=== PATIENT | female | born 1955 | race Caucasian/White ===

== ENCOUNTER 2018-04-02 12:03 | Emergency (ER) | payer OTHER ==
--- NOTE | 2018-04-02 12:55 | RAD REPORT ---
EXAM DESCRIPTION: CT - Head Brain Wo Cont - 04/02/2018 12:45 pm CLINICAL HISTORY: TRAUMA Trauma, head injury COMPARISON: No comparisons TECHNIQUE: All CT scans are performed using dose optimization technique as appropriate and may inclu de automated exposure control or mA/KV adjustment according to patient size. FINDINGS: No intracranial hemorrhage, hydrocephalus or extra-axial fluid collection.No areas of brai n edema or evidence of midline shift. The paranasal sinuses and mastoids are clear. The calvarium is intact. IMPRESSION: No acute intracranial abnormality.
[2018-04-02] MEDS ORDERED: MECLIZINE HCL 12.5 MG TAB ONE (13:20)
--- NOTE | 2018-04-02 13:21 | EDPHYS ---
Physician Documentation [facility] Name: Kelly Chaudhry Age: 62 yrs Sex: Female : 1955 Arrival Date: 04/02/2018 Time: 12:06 Bed 9 Private MD: ED Physician Ariadna Posadas HPI: 04/02 13:50 This 62 yrs old Female presents to ER via Ambulatory with complaints of Head snw Injury Without LOC-Adult. 13:50 The patient or guardian reports injury, a laceration, 2.8 cm(s), clean, tenderness. The snw complaints affect the left frontal area. Onset: The symptoms/episode began/occurred suddenly, just prior to arrival. Severity of symptoms: At their worst the symptoms were mild, moderate. The patient has not experienced similar symptoms in the past. It is unknown whether or not the patient has recently seen a physician. Historical: - Allergies: 12:23 No Known Allergies; ph - PMHx: 12:23 vertigo; Hyperlipidemia; ph - PSHx: 12:23 back sx; Tubal ligation; bunion sx; ph - Immunization history:: Adult Immunizations up to date. - Social history:: Smoking status: Patient/guardian denies using tobacco. - Ebola Screening: : No symptoms or risks identified at this time. ROS: 13:48 Constitutional: Negative for fever, chills, and weight loss, Eyes: Negative for injury, snw pain, redness, and discharge, ENT: Negative for injury, pain, and discharge, Neck: Negative for injury, pain, and swelling, Cardiovascular: Negative for chest pain, palpitations, and edema, Respiratory: Negative for shortness of breath, cough, wheezing, and pleuritic chest pain, Abdomen/GI: Negative for abdominal pain, nausea, vomiting, diarrhea, and constipation, Back: Negative for injury and pain, : Negative for injury, bleeding, discharge, and swelling, MS/Extremity: Negative for injury and deformity, Skin: Negative for injury, rash, and discoloration. 13:48 Neuro: Positive for struck head on furniture as she leaned over to pick something up. no LOC, pt states she has vertigo and she was experiencing some of that prior to stumbling. + laceration to left frontal scalp, bleeding controlled. Exam: 13:45 Constitutional: This is a well developed, well nourished patient who is awake, alert, snw and in no acute distress. Head/Face: Normocephalic, traumatic. 1in lac to left frontal scalp, linear, bleeding controlled Eyes: Pupils equal round and reactive to light, extra-ocular motions intact. Lids and lashes normal. Conjunctiva and sclera are non-icteric and not injected. Cornea within normal limits. Periorbital areas with no swelling, redness, or edema. ENT: Nares patent. No nasal discharge, no septal abnormalities noted. Tympanic membranes are normal and external auditory canals are clear. Oropharynx with no redness, swelling, or masses, exudates, or evidence of obstruction, uvula midline. Mucous membranes moist. Neck: Trachea midline, no thyromegaly or masses palpated, and no cervical lymphadenopathy. Supple, full range of motion without nuchal rigidity, or vertebral point tenderness. No Meningismus. Chest/axilla: Normal chest wall appearance and motion. Nontender with no deformity. No lesions are appreciated. Cardiovascular: Regular rate and rhythm with a normal S1 and S2. No gallops, murmurs, or rubs. Normal PMI, no JVD. No pulse deficits. Respiratory: Lungs have equal breath sounds bilaterally, clear to auscultation and percussion. No rales, rhonchi or wheezes noted. No increased work of breathing, no retractions or nasal flaring. Abdomen/GI: Soft, non-tender, with normal bowel sounds. No distension or tympany. No guarding or rebound. No evidence of tenderness throughout. Back: No spinal tenderness. No costovertebral tenderness. Full range of motion. Skin: Warm, dry with normal turgor. Normal color with no rashes, no lesions, and no evidence of cellulitis. MS/ Extremity: Pulses equal, no cyanosis. Neurovascular intact. Full, normal range of motion. Psych: Awake, alert, with orientation to person, place and time. Behavior, mood, and affect are within normal limits. 13:45 Neuro: Orientation: is normal, Mentation: is normal, Memory: is normal, Cranial nerves: grossly normal, Cerebellar function: is grossly normal, Sensation: is normal, seizure activity, is not displayed by the patient. Vital Signs: 12:22 BP 153 / 91; Pulse 83; Resp 18; Temp 97.8; Pulse Ox 100% on R/A; Weight 70.31 kg; ph Height 5 ft. 7 in. (170.18 cm); 12:22 Body Mass Index 24.28 (70.31 kg, 170.18 cm) ph Abbi Coma Score: 13:47 Eye Response: spontaneous(4). Verbal Response: oriented(5). Motor Response: obeys snw commands(6). Total: 15. 13:50 Eye Response: spontaneous(4). Verbal Response: oriented(5). Motor Response: obeys snw commands(6). Total: 15. Laceration: 13:13 Wound Repair of 2.2cm ( 0.9in ) subcutaneous laceration to left frontal area. Linear snw shaped.. Distal neuro/vascular/tendon intact. Anesthesia: Local anesthetic administered with 0 mls of 1% lidocaine. Wound prep: Simple cleansing with hibiclenz. Skin closed with 2 1-0 Marzena using staple gun. Dressed with Neosporin. Patient tolerated well. MDM: 12:37 Patient medically screened. snw 13:47 Data reviewed: vital signs, nurses notes. Data interpreted: Pulse oximetry: on room air snw is 100 %. Interpretation: normal. Counseling: I had a detailed discussion with the patient and/or guardian regarding: the historical points, exam findings, and any diagnostic results supporting the discharge/admit diagnosis, the presence of at least one elevated blood pressure reading (>120/80) during this emergency department visit, radiology results, the need for outpatient follow up, to return to the emergency department if symptoms worsen or persist or if there are any questions or concerns that arise at home. Special discussion: I have referred the patient to see his PCP for further evaluation of high blood pressure. Based on the patient's history, exam and DX evaluation, there is no indication for emergent intervention or inpatient TX. It is understood by the patient/guardian that if the SXs persist or worsen they need to return immediately for re-evaluation. Based on the history and exam findings, there is no indication for further emergent testing or inpatient evaluation. I discussed with the patient/guardian the need to see the primary care provider for further evaluation of the symptoms. generally takes Claritin D (discussed medications assoc with HTN). 04/02 12:25 Order name: Head Brain Wo Cont CT; Complete Time: 13:02 ph Administered Medications: 13:13 Drug: Meclizine 50 mg Route: PO; Disposition: 04/02/18 13:20 Discharged to Home. Impression: Vertigo, Superficial injury of head, Laceration without foreign body of unspecified part of head. - Condition is Stable. - Discharge Instructions: Head Injury, Adult, Hypertension, Stitches, Marzena, or Adhesive Wound Closure, Vertigo. - Prescriptions for Keflex 500 mg Oral Capsule - take 1 capsule by ORAL route every 8 hours for 10 days; 30 capsule. Meclizine 25 mg Oral Tablet - take 1 tablet by ORAL route every 8 hours As needed; 30 tablet. - Medication Reconciliation Form, Thank You Letter, Antibiotic Education, Prescription Opioid Use form. - Follow up: Emergency Department; When: As needed; Reason: Worsening of condition. Follow up: Private Physician; When: 1 week; Reason: Recheck today's complaints, Continuance of care, Staple/Suture removal, Re-evaluation by your physician. Addendum: 04/04/2018 15:27 Co-signature as Attending Physician, Ariadna Posadas MD. m a2 Signatures: Dispatcher [employer] EDMS Kindra Ricketts, LUCINA-C MUSICAL STRING MAKER-Csnw Saundra James RN RN Irma Garcia RN RN Ariadan Posadas MD MD ak2 Corrections: (The following items were deleted from the chart) 04/02 13:41 13:20 04/02/2018 13:20 Discharged to Home. Impression: Vertigo; Superficial injury of hb head; Laceration without foreign body of unspecified part of head. Condition is Stable. Forms are Medication Reconciliation Form, Thank You Letter, Antibiotic Education, Prescription Opioid Use. Follow up: Emergency Department; When: As needed; Reason: Worsening of condition. Follow up: Private Physician; When: 1 week; Reason: Recheck today's complaints, Continuance of care, Staple/Suture removal, Re-evaluation by your physician. snw
--- NOTE | 2018-04-02 13:21 | ER ---
Nurse's Notes [facility] Name: Kelly Chaudhry Age: 62 yrs Sex: Female : 1955 Arrival Date: 04/02/2018 Time: 12:06 Bed 9 Private MD: Diagnosis: Vertigo;Superficial injury of head;Laceration without foreign body of unspecified part of head Presentation: 04/02 12:20 Presenting complaint: Patient states: " I was bending over to put on my shoes and hit ph my head in the dresser." Denies LOC or blood thinner use, small laceration noted to L side of head, pt reports some dizziness and nausea, states, " I have a hx of vertigo though.". Transition of care: patient was not received from another setting of care. Onset of symptoms was April 02, 2018. Risk Assessment: Do you want to hurt yourself or someone else? Patient reports no desire to harm self or others. Initial Sepsis Screen: Does the patient meet any 2 criteria? No. Patient's initial sepsis screen is negative. Does the patient have a suspected source of infection? No. Patient's initial sepsis screen is negative. Care prior to arrival: None. 12:20 Method Of Arrival: Ambulatory ph 12:20 Acuity: MAXIMILIANO 3 ph Historical: - Allergies: 12:23 No Known Allergies; ph - PMHx: 12:23 vertigo; Hyperlipidemia; ph - PSHx: 12:23 back sx; Tubal ligation; bunion sx; ph - Immunization history:: Adult Immunizations up to date. - Social history:: Smoking status: Patient/guardian denies using tobacco. - Ebola Screening: : No symptoms or risks identified at this time. Screenin:30 Abuse screen: Denies threats or abuse. Denies injuries from another. Nutritional hb screening: No deficits noted. Tuberculosis screening: No symptoms or risk factors identified. Fall Risk None identified. Assessment: 12:30 General: Appears in no apparent distress. Behavior is calm, cooperative. Pain: Pain hb currently is 3 out of 10 on a pain scale. Neuro: Level of Consciousness is awake, alert, obeys commands, Oriented to person, place, time, situation, Reports dizziness. Cardiovascular: Capillary refill < 3 seconds Patient's skin is warm and dry. Respiratory: Airway is patent Respiratory effort is even, unlabored, Respiratory pattern is regular, symmetrical. GI: No signs and/or symptoms were reported involving the gastrointestinal system. : No signs and/or symptoms were reported regarding the genitourinary system. EENT: No signs and/or symptoms were reported regarding the EENT system. Derm: Skin is pink, warm \\T\\ dry. Musculoskeletal: No signs and/or symptoms reported regarding the musculoskeletal system. Injury Description: Laceration sustained to top of head is clean, 0.5 to 2.5 cm long, not bleeding. 13:15 Reassessment: Patient appears in no apparent distress at this time. Patient and/or hb family updated on plan of care and expected duration. Pain level reassessed. Patient is alert, oriented x 3, equal unlabored respirations, skin warm/dry/pink. Vital Signs: 12:22 BP 153 / 91; Pulse 83; Resp 18; Temp 97.8; Pulse Ox 100% on R/A; Weight 70.31 kg; ph Height 5 ft. 7 in. (170.18 cm); 12:22 Body Mass Index 24.28 (70.31 kg, 170.18 cm) ph Abbi Coma Score: 13:47 Eye Response: spontaneous(4). Verbal Response: oriented(5). Motor Response: obeys snw commands(6). Total: 15. 13:50 Eye Response: spontaneous(4). Verbal Response: oriented(5). Motor Response: obeys snw commands(6). Total: 15. ED Course: 12:06 Patient arrived in ED. rg4 12:22 Triage completed. ph 12:23 Arm band placed on. ph 12:32 Kindra Ricketts FNP-C is PHCP. snw 12:37 Ariadna Posadas MD is Attending Physician. snw 12:40 CT completed. Patient moved to CT via wheelchair. sj 12:45 Patient has correct armband on for positive identification. Bed in low position. Call hb light in reach. Side rails up X 1. 12:46 Head Brain Wo Cont CT In Process Unspecified. EDMS 13:15 No provider procedures requiring assistance completed. hb 13:15 Patient did not have IV access during this emergency room visit. hb Administered Medications: 13:13 Drug: Meclizine 50 mg Route: PO; hb Outcome: 13:15 Discharged to home ambulatory. hb 13:15 Condition: stable 13:15 Discharge instructions given to patient, Instructed on discharge instructions, follow up and referral plans. medication usage, Demonstrated understanding of instructions, follow-up care, medications, Prescriptions given X 2. 13:20 Discharge ordered by . karen 13:41 Patient left the ED. Signatures: Dispatcher [employer] EDMS Kindra Ricketts, MELVA POLICEMAN-Stephanie Ulrich Patricia, RN RN Irma Garcia RN RN Kirsty Eason rg4
== END 2018-04-02 13:41 | disposition home or self-care (01) ==
LOC: ER 12:03
PROC: 0JQ00ZZ Repair Scalp Subcutaneous Tissue and Fascia, Open Approach (ICD-10-PCS; principal; 2018-04-02)
DX: S01.81XA Laceration without foreign body of other part of head, initial encounter (principal); S00.90XA Unspecified superficial injury of unspecified part of head, initial encounter; R42 Dizziness and giddiness; X58.XXXA Exposure to other specified factors, initial encounter
CPT/HCPCS: 70450; 99284

== ENCOUNTER 2018-04-10 08:38 | Emergency (ER) | payer OTHER ==
--- NOTE | 2018-04-10 09:23 | EDPHYS ---
Physician Documentation [facility] Name: Kelly Chaudhry Age: 62 yrs Sex: Female : 1955 Arrival Date: 04/10/2018 Time: 08:40 Bed 12 Private MD: ED Physician Lars Rowan HPI: 04/10 09:23 This 62 yrs old Female presents to ER via Ambulatory with complaints of jr8 Staple Removal. 09:23 The patient has kimberly on the scalp. Previous treatment: The patient was initially jr8 treated 10 day(s) ago. Sutures/kimberly progress: The patient has no c/o's. The wound is well-healing with no redness, swelling, discharge, or dehiscence reported. The patient has not experienced similar symptoms in the past. The patient has not recently seen a physician. Historical: - Allergies: 09:02 NKA; iw - PMHx: 09:02 Hyperlipidemia; Vertigo; iw - PSHx: 09:02 back sx; Tubal ligation; bunion sx; iw - Immunization history:: Adult Immunizations up to date. - Social history:: Smoking status: . - Ebola Screening: : Patient negative for fever greater than or equal to 101.5 degrees Fahrenheit, and additional compatible Ebola Virus Disease symptoms Patient denies exposure to infectious person Patient denies travel to an Ebola-affected area in the 21 days before illness onset No symptoms or risks identified at this time. ROS: 09:23 Eyes: Negative for injury, pain, redness, and discharge, ENT: Negative for injury, jr8 pain, and discharge, Neck: Negative for injury, pain, and swelling, Cardiovascular: Negative for chest pain, palpitations, and edema, Respiratory: Negative for shortness of breath, cough, wheezing, and pleuritic chest pain, Abdomen/GI: Negative for abdominal pain, nausea, vomiting, diarrhea, and constipation, Back: Negative for injury and pain, MS/Extremity: Negative for injury and deformity, Skin: Negative for injury, rash, and discoloration, Neuro: Negative for headache, weakness, numbness, tingling, and seizure. Exam: 09:23 Head/Face: Normocephalic, atraumatic. Eyes: Pupils equal round and reactive to light, jr8 extra-ocular motions intact. Lids and lashes normal. Conjunctiva and sclera are non-icteric and not injected. Cornea within normal limits. Periorbital areas with no swelling, redness, or edema. ENT: Nares patent. No nasal discharge, no septal abnormalities noted. Tympanic membranes are normal and external auditory canals are clear. Oropharynx with no redness, swelling, or masses, exudates, or evidence of obstruction, uvula midline. Mucous membranes moist. Neck: Trachea midline, no thyromegaly or masses palpated, and no cervical lymphadenopathy. Supple, full range of motion without nuchal rigidity, or vertebral point tenderness. No Meningismus. Cardiovascular: Regular rate and rhythm with a normal S1 and S2. No gallops, murmurs, or rubs. Normal PMI, no JVD. No pulse deficits. Respiratory: Lungs have equal breath sounds bilaterally, clear to auscultation and percussion. No rales, rhonchi or wheezes noted. No increased work of breathing, no retractions or nasal flaring. Abdomen/GI: Soft, non-tender, with normal bowel sounds. No distension or tympany. No guarding or rebound. No evidence of tenderness throughout. Back: No spinal tenderness. No costovertebral tenderness. Full range of motion. MS/ Extremity: Pulses equal, no cyanosis. Neurovascular intact. Full, normal range of motion. Neuro: Awake and alert, GCS 15, oriented to person, place, time, and situation. Cranial nerves II-XII grossly intact. Motor strength 5/5 in all extremities. Sensory grossly intact. Cerebellar exam normal. Normal gait. 09:23 Skin: Wound recheck: Staple laceration closure: the wound is healing well, the edges are well approximated, no evidence of dehiscence, no drainage, no erythema, no swelling. Vital Signs: 09:02 BP 149 / 74; Pulse 86; Resp 16 S; Temp 98.3; Pulse Ox 100% on R/A; Weight 70.31 kg; iw Height 5 ft. 7 in. (170.18 cm); Pain 0/10; 09:02 Body Mass Index 24.28 (70.31 kg, 170.18 cm) iw Procedures: 09:23 Suture/Staple removal: Removed 2 kimberly, from scalp, site appears well healed, Patient jr8 tolerated well. MDM: 09:00 Patient medically screened. jr8 09:22 Data reviewed: vital signs, nurses notes, and as a result, I will discharge patient. jr8 Data interpreted: Pulse oximetry: on room air is 100 %. Interpretation: normal. Counseling: I had a detailed discussion with the patient and/or guardian regarding: the historical points, exam findings, and any diagnostic results supporting the discharge/admit diagnosis, the need for outpatient follow up, a family practitioner, to return to the emergency department if symptoms worsen or persist or if there are any questions or concerns that arise at home. Administered Medications: No medications were administered Disposition: 04/10/18 09:23 Discharged to Home. Impression: Encounter for removal of sutures. - Condition is Stable. - Discharge Instructions: Stitches, Sunburst, or Adhesive Wound Closure, Suture Removal, Care After. - Medication Reconciliation Form, Thank You Letter, Antibiotic Education, Prescription Opioid Use form. - Follow up: Private Physician; When: As needed; Reason: Wound Recheck, Recheck today's complaints, Continuance of care, Re-evaluation by your physician. - Problem is new. - Symptoms are resolved. Addendum: 04/23/2018 07:25 Co-signature as Attending Physician, Lars Rowan MD I agree with the assessment and k dr plan of care. Signatures: Lars Rowan MD MD kdr Sissy Truong RN RN iw Wilton Littlejohn PA PA jr8 Corrections: (The following items were deleted from the chart) 04/10 09:44 09:23 04/10/2018 09:23 Discharged to Home. Impression: Encounter for removal of iw sutures. Condition is Stable. Forms are Medication Reconciliation Form, Thank You Letter, Antibiotic Education, Prescription Opioid Use. Follow up: Private Physician; When: As needed; Reason: Wound Recheck, Recheck today's complaints, Continuance of care, Re-evaluation by your physician. Problem is new. Symptoms are resolved. jr8
--- NOTE | 2018-04-10 09:23 | ER ---
Nurse's Notes [facility] Name: Kelly Chaudhry Age: 62 yrs Sex: Female : 1955 Arrival Date: 04/10/2018 Time: 08:40 Bed 12 Private MD: Diagnosis: Encounter for removal of sutures Presentation: 04/10 08:57 Presenting complaint: Patient states: needs 2 kimberly removed from head, injury iw occurred 10 days ago. Transition of care: patient was not received from another setting of care. Onset of symptoms was April 10, 2018. Risk Assessment: Do you want to hurt yourself or someone else? Patient reports no desire to harm self or others. Initial Sepsis Screen: Does the patient meet any 2 criteria? No. Patient's initial sepsis screen is negative. Does the patient have a suspected source of infection? No. Patient's initial sepsis screen is negative. Care prior to arrival: None. 08:57 Method Of Arrival: Ambulatory iw 08:57 Acuity: MAXIMILIANO 4 iw Triage Assessment: 09:20 General: Appears in no apparent distress. comfortable, Behavior is calm, cooperative. iw Pain: Denies pain. Historical: - Allergies: 09:02 NKA; iw - PMHx: 09:02 Hyperlipidemia; Vertigo; iw - PSHx: 09:02 back sx; Tubal ligation; bunion sx; iw - Immunization history:: Adult Immunizations up to date. - Social history:: Smoking status: . - Ebola Screening: : Patient negative for fever greater than or equal to 101.5 degrees Fahrenheit, and additional compatible Ebola Virus Disease symptoms Patient denies exposure to infectious person Patient denies travel to an Ebola-affected area in the 21 days before illness onset No symptoms or risks identified at this time. Screenin:30 Abuse screen: Denies threats or abuse. Denies injuries from another. Nutritional iw screening: No deficits noted. Tuberculosis screening: No symptoms or risk factors identified. Fall Risk None identified. Assessment: 09:15 General: Appears in no apparent distress. comfortable. Pain: Denies pain. Neuro: Level iw of Consciousness is awake, alert, obeys commands. Cardiovascular: Capillary refill < 3 seconds in bilateral fingers Patient's skin is warm and dry. Respiratory: Respiratory effort is even, unlabored, Respiratory pattern is regular. Derm: Skin is intact, is healthy with good turgor. Musculoskeletal: Range of motion: intact in all extremities. Vital Signs: 09:02 BP 149 / 74; Pulse 86; Resp 16 S; Temp 98.3; Pulse Ox 100% on R/A; Weight 70.31 kg; iw Height 5 ft. 7 in. (170.18 cm); Pain 0/10; 09:02 Body Mass Index 24.28 (70.31 kg, 170.18 cm) iw ED Course: 08:40 Patient arrived in ED. mr 08:52 Sissy Truong, RN is Primary Nurse. iw 08:58 Triage completed. iw 09:00 Wilton Littlejohn PA is PHCP. jr8 09:00 Lars Rowan MD is Attending Physician. jr8 09:03 Arm band placed on. iw 09:30 Patient has correct armband on for positive identification. iw 09:43 No provider procedures requiring assistance completed. Patient did not have IV access iw during this emergency room visit. Administered Medications: No medications were administered Outcome: 09:23 Discharge ordered by . jr8 09:43 Discharged to home ambulatory. iw 09:43 Condition: good 09:43 Discharge instructions given to patient, Instructed on discharge instructions, follow up and referral plans. Demonstrated understanding of instructions, follow-up care. 09:43 No charge visit due to suture removal. 09:44 Patient left the ED. iw Signatures: Alisson Gomez mr Sissy Truong, RN RN iw Wilton Littlejohn PA PA jr8
== END 2018-04-10 09:44 | disposition home or self-care (01) ==
LOC: ER 08:38
DX: Z48.02 Encounter for removal of sutures (principal)